=== PATIENT | female | born 1970 | race Caucasian/White ===

== ENCOUNTER 2016-07-25 13:39 | Emergency (ER) | payer OTHER ==
[~2016-07-25] VITALS: Wt 101.6 kg
[~2016-07-25 13:39] MED LIST: ADVAIR 250/501 EA INH; ALLERGY RELIEF10 MG PO; AMLODIPINE BES2.5 MG PO; HYDROCHLOROTHIA25 MG PO; PREVACID30 M1 PO; SINGULAIR10 MG PO
[2016-07-25] MEDS ORDERED: TOPROL XL50 M1 PO (14:00)
== END 2016-07-25 16:10 | disposition home or self-care (01) ==
LOC: ED 13:39
DX: S93.402A Sprain of unspecified ligament of left ankle, initial encounter (principal); Z88.8 Allergy status to other drugs, medicaments and biological substances; Z79.899 Other long term (current) drug therapy; W23.1XXA Caught, crushed, jammed, or pinched between stationary objects, initial encounter; Y93.89 Activity, other specified; Y92.9 Unspecified place or not applicable; Y99.9 Unspecified external cause status